=== PATIENT | male | born 1980 | race Caucasian/White ===

== ENCOUNTER 2019-07-20 15:19 | Emergency (ER) | payer SELFPAY ==
[~2019-07-20] VITALS: Ht 175.3 cm; Wt 87.1 kg
[2019-07-20 15:25] VITALS: BP 132/81
[2019-07-20 16:19] LABS: BASOPHILS % (AUTO) 0.3 % (0.0-2.0); EOSINOPHILS # (AUTO) 0.1 K/uL (0-0.4); EOSINOPHILS % (AUTO) 1.5 % (0.0-4.0); HEMATOCRIT 41.4 % (36-52); HEMOGLOBIN 13.8 g/dL (12.0-18.0); LYMPHOCYTES # (AUTO) 0.7 K/uL (2.0-11.5); LYMPHOCYTES % (AUTO) 15.4 % (20.5-51.1); MEAN CORPUSCULAR HEMOGLOBIN 31 pg (27-31); MEAN CORPUSCULAR HGB CONC 33 g/dL (33-37); MEAN CORPUSCULAR VOLUME 91.7 fL (80-94); MONOCYTES # (AUTO) 0.6 K/uL (0.8-1.0); MONOCYTES % (AUTO) 12.8 % (1.7-9.3); NEUTROPHILS # (AUTO) 3.3 K/uL (1.8-7.7); PLATELET COUNT (AUTO) 163 K/uL (140-450); RED BLOOD CELL COUNT(AUTO) 4.52 MIL/uL (4.20-6.10); RED CELL DISTRIBUTION WIDTH 15.3 % (11.6-13.7); WHITE BLOOD COUNT (AUTO) 4.7 K/uL (4.8-10.8)
[2019-07-20 16:37] LABS: CARBON DIOXIDE 26.6 mmol/L (21-32); CREATININE 1.7 mg/dL (0.7-1.3)
[2019-07-20] MEDS: LORazepam 2 MG/ML VIAL IVP ONE (16:40)
[2019-07-20 16:52] LABS: PHENYTOIN (DILANTIN) 0.6 ug/ml (10.0-20.0)
[2019-07-20 17:53] LABS: PHENOBARBITAL < 1 ug/ml (15-40); POTASSIUM 4.4 mmol/L (3.5-5.1)
[2019-07-20 17:54] LABS: ANION GAP 15.8 (8-16)
[2019-07-20] MEDS: NACL 0.9% 500 ML IV SCH (18:03)
[2019-07-20 18:12] VITALS: BP 132/81
== END 2019-07-20 18:10 | disposition home or self-care (01) ==
LOC: MED 15:19
DX: R56.9 Unspecified convulsions (principal); I10 Essential (primary) hypertension; K14.9 Disease of tongue, unspecified
CPT/HCPCS: 36415; 70450; 71045; 80048; 80156; 80184; 80185; 85025; 93005; 96374; 99284; J2060; Q0092